=== PATIENT | female | born 1995 | race Caucasian/White ===

== ENCOUNTER 2023-09-08 03:13 | Emergency (ER) | payer OTHER ==
[2023-09-08 03:35] LABS: EOSINOPHILS PERCENT AUTO 2.1 % (0.0-5.4); HEMATOCRIT 42.9 % (34.3-46.0); HEMOGLOBIN 15.1 g/dL (11.2-15.5); IMMATURE GRAN ABSOLUTE AUTO 0.02 K/uL (0.00-0.23); IMMATURE GRAN PERCENT AUTO 0.2 % (0.0-0.7); LYMPHOCYTES ABSOLUTE AUTO 2.99 K/uL (0.8-3.3); MEAN CORPUSCULAR HEMOGLOBIN 33.4 pg (31.6-35.5); MEAN CORPUSCULAR HGB CONC 35.2 g/dL (31.6-35.5); MEAN CORPUSCULAR VOLUME 94.9 fL (81.4-99.0); MONOCYTES ABSOLUTE AUTO 0.84 K/uL (0.20-0.90); MONOCYTES PERCENT AUTO 8.7 % (3.3-12.6); NEUTROPHILS ABSOLUTE AUTO 5.51 K/uL (1.0-7.6); PLATELET COUNT,PLT 323 K/uL (130-375); RED BLOOD CELL COUNT 4.52 M/uL (3.77-5.24); WHITE BLOOD CELL COUNT,WBC 9.7 K/uL (3.2-11.0)
[2023-09-08] MEDS: droPERidol 5 MG/2 ML SDV IVPUSH ONE (03:41)
[2023-09-08] MEDS: Lactated Ringers 1,000 ML IV ONE (03:41)
[2023-09-08 03:47] LABS: CALCIUM 8.9 mg/dL (8.5-10.1); CREATININE 0.7 mg/dL (0.6-1.0); EST CRCL DRUG DOSING (CG) 98.98 mL/min; POTASSIUM,K 3.6 mmol/L (3.6-5.2)
[2023-09-08 03:50] LABS: ANION GAP 19.6 mmol/L (5.0-14.0)
[2023-09-08 04:57] LABS: AMPHETAMINES SCREEN, URINE NEGATIVE (NEGATIVE); BARBITURATE SCREEN,URINE NEGATIVE (NEGATIVE); BENZODIAZEPINES SCREEN,URINE NEGATIVE (NEGATIVE); METHADONE SCREEN, URINE NEGATIVE (NEGATIVE); METHAMPHETAMINES SCREEN, URINE NEGATIVE (NEGATIVE); OXYCODONE SCREEN,URINE NEGATIVE (NEGATIVE); THC SCREEN,URINE 50 NG/ML PRESUMPTIVE POSITIVE (NEGATIVE)
[2023-09-08 04:58] LABS: PROPOXYPHENE SCREEN,URINE NEGATIVE (NEGATIVE)
== END 2023-09-08 06:18 | disposition home or self-care (01) ==
LOC: JP.ED 03:13
DX: R11.2 Nausea with vomiting, unspecified (principal); Z88.8 Allergy status to other drugs, medicaments and biological substances; Z79.899 Other long term (current) drug therapy
CPT/HCPCS: 36415; 80048; 80305; 80307; 83605; 85025; 96361; 96374; 99283; 99284; J1790; J7120